=== PATIENT | male | born 1995 | race Caucasian/White ===

== ENCOUNTER 2017-05-03 08:58 | Inpatient (IN) | payer MEDICAID ==
[~2017-05-03] VITALS: Ht 190.5 cm; Wt 98.9 kg
[2017-05-03 09:36] VITALS: BP 123/67
[2017-05-03] MEDS ORDERED: HYDROmorphone 1 MG/ML AMP IM ONE ×2 (09:45→11:05)
--- NOTE | 2017-05-03 09:50 | NUR ---
21 YO MALE C/O RIGHT SHOULDER PAIN 10/10 SINCE LAST NIGHT. PT STATES HE FELT RIGHT SHOULDER POP OUT LAST NIGHT WHILE HE WAS SLEEPING, PT DOES HAVE A HISTORY OF RIGHT SHOULDER DISLOCATION IN THE PAST. A&OX4, VSS, GURNEY TO LOWEST LEVEL BED RAIL UP, RESTING ON GURNEY.
--- NOTE | 2017-05-03 11:40 | NUR ---
DR. OROSCO AT BEDSIDE SPEAKING WITH PT.
[2017-05-03] MEDS ORDERED: ACETAMINOPHEN 325 MG TAB PO PRN (12:20)
[2017-05-03] MEDS ORDERED: ONDANSETRON 4 MG/2 ML VIAL IVP PRN (12:20)
[2017-05-03 13:00] LABS: HEMOGLOBIN 13.8 g/dL (12.0-18.0); MEAN CORPUSCULAR HEMOGLOBIN 28 pg (27-31); MEAN CORPUSCULAR HGB CONC 32 g/dL (33-37); MEAN CORPUSCULAR VOLUME 88 fL (80-94); PLATELET COUNT (AUTO) 200 K/uL (140-450); WHITE BLOOD COUNT (AUTO) 6.2 K/uL (4.8-10.8)
--- NOTE | 2017-05-03 13:10 | NUR ---
VSS, DIE CAST DIE MAKER SHOWING NS @72HR
[2017-05-03 13:17] LABS: ANION GAP 13.5 (8-16); CARBON DIOXIDE 26.8 mmol/L (21-32); CREATININE 0.8 mg/dL (0.7-1.3); POTASSIUM 4.3 mmol/L (3.5-5.1)
[2017-05-03] MEDS ORDERED: ACET-2869 PO (13:19)
--- NOTE | 2017-05-03 13:19 | NUR ---
Patient will be admitted to care of DR. KOEHLER. Admited to TELE. Will go to [id number]. Belongings list completed. Report to JOELLE DAVIS.
[2017-05-03 13:30] LABS: EOSINOPHILS % (MANUAL) 3 % (0-4); LYMPHOCYTES % (MANUAL) 39 % (20-46); MONOCYTES % (MANUAL) 4 % (5-12)
--- NOTE | 2017-05-03 13:30 | NUR ---
RECEIVED REPORT FROM ER NURSE SEBASTIAN, PATIENT AWAKE AND ALERT, NO SIGNS OF ACUTE DISTRESS. BOWEL SOUNDS ACTIVE IN ALL FOUR QUADRANTS, BOWEL AND BLADDER CONTINENCE. SKIN IS INTACT, PT IS AMBULATORY WITH BRP. RIGHT SHOULDER DROOPING LOWER THAN LEFT SHOULDER. PT COMPLAIN OF PAIN 10/10 ON RIGHT SHOULDER. IV IS PATENT AND ASYMPTOMATIC, ORIENTED PT TO HOSPITAL AND UNIT. PT VERBALIZED UNDERSTANDING. VS- BP 122/76, PULSE 77, O2 97, TEMP 98.5, RR 18 BPM. BED IN LOW POSITION, CALL LIGHT WITHIN REACH, BILATERAL HALF SIDE RAILS UP. BED ALARM ON. WILL CONTINUE TO MONITOR.
[2017-05-03 13:41] LABS: CHOL/HDL RATIO 2.3 (1-4.5); FREE T4 (FREE THYROXINE) 1.21 ng/dL (0.76-1.46); MAGNESIUM 1.9 mg/dL (1.8-2.4); PHOSPHORUS 4.7 mg/dL (2.5-4.9); THYROID STIMULATING HORMONE 4.75 uIU/mL (0.34-3.74)
[2017-05-03] MEDS ORDERED: HYDROmorphone 1 MG/ML AMP IVP PRN (14:35)
[2017-05-03] MEDS ORDERED: CYCLOBENZAPRINE 10 MG TAB PO PRN (14:45)
[2017-05-03] MEDS: NACL 0.9% 1,000 ML IV SCH (15:08)
--- NOTE | 2017-05-03 15:35 | NUR ---
ADMINISTER IV ZOFRAN ORDERED D/T ONE EPISODE OF EMESIS. EMESIS APPEARS CLEAR WITH MINIMAL AMOUNT OF BLOOD.
[2017-05-03] MEDS: HYDROmorphone 1 MG/ML AMP IVP PRN ×2 (15:55→21:34)
--- NOTE | 2017-05-03 15:55 | NUR ---
PT COMPLAINING OF PAIN 10/10 IN RIGHT SHOULDER, ADMINISTERED DILAUDID ORDERED. WILL CONTINUE TO MONITOR.
[2017-05-03 16:00] VITALS: BP 122/76
--- NOTE | 2017-05-03 18:00 | NUR ---
PT SLEEPING, NO SIGNS OF ACUTE DISTRESS. BED IN LOW POSITION WITH BILATERAL HALF SIDE RAILS UP, CALL LIGHT WITHIN REACH. WILL CONTINUE TO MONITOR.
--- NOTE | 2017-05-03 19:15 | NUR ---
PATIENT SLEEPING, NO SIGNS OF ACUTE DISTRESS. ENDORSED TO WAREHOUSE OPERATIONS ASSOCIATE NURSE FOR CONTINUITY OF CARE.
--- NOTE | 2017-05-03 19:20 | NUR ---
RECEIVED PT SLEEPING, EASILY AROUSABLE TO TOUCH, VITAL SIGNS STABLE, DENIES ANY PAIN, ABLE TO MOVE ALL EXTREMITIES, PULSE PRESENT AND GOOD CAP REFILL TO RT ARM, SAFETY MEASURES IN PLACE, CALL LIGHT WITHIN REACH.
[2017-05-03 20:00] VITALS: BP 102/57
[2017-05-03] MEDS: DOCUSATE SODIUM 100 MG GELCAP PO SCH ×2 (20:22→21:00)
--- NOTE | 2017-05-03 21:40 | NUR ---
IV LINE INFILTRATED, NEW IV LINE INSERTED TO LEFT HAND WITH GOOD BLOOD RETURN, MEDICATED WITH DILAUDID FOR RT SHOULDER PAIN,PT COMPLAINING WITH ITCHINESS TO BLE, NO RASHES OR REDNESS NOTED, DR CHAMBERS CHECKED THE PT AND ORDERED BENADRYL, BENADRYL PO GIVEN X1 DOSE ORDERED, ALL NEEDS ATTENDED.
[2017-05-04] VITALS (7 sets, daily range): BP systolic 99–126; BP diastolic 52–89
--- NOTE | 2017-05-04 | NUR ---
PT SLEEPING, EASILY AROUSABLE, VITAL SIGNS STABLE, AWARE OF NPO AFTER MIDNIGHT, IVF INFUSING WELL, CONTINUE TO MONITOR CLOSELY.
[2017-05-04] MEDS: NACL 0.9% 1,000 ML IV SCH ×2 (00:46→04:19)
[2017-05-04] MEDS: HYDROmorphone 1 MG/ML AMP IVP PRN ×2 (04:14→20:19)
--- NOTE | 2017-05-04 04:15 | NUR ---
PT AWAKE COMPLAINING OF PAIN, VITAL SIGNS STABLE, MEDICATED PRN FOR DILAUDID IVP, MAINTAIN ON NPO, IVF INFUSING WELL, MONITORED CLOSELY.
[2017-05-04 05:47] LABS: MEAN CORPUSCULAR HEMOGLOBIN 28 pg (27-31); MEAN CORPUSCULAR HGB CONC 32 g/dL (33-37); MEAN CORPUSCULAR VOLUME 89 fL (80-94); PLATELET COUNT (AUTO) 172 K/uL (140-450); RED BLOOD CELL COUNT(AUTO) 4.62 MIL/uL (4.20-6.10); RED CELL DISTRIBUTION WIDTH 12.9 % (11.6-13.7); WHITE BLOOD COUNT (AUTO) 5.5 K/uL (4.8-10.8)
--- NOTE | 2017-05-04 06:00 | NUR ---
PT SLEEPING, NO SIGNS OF DISTRESS, IVF INFUSING WELL, MAINTAINED ON NPO, MONITORED CLOSELY.
[2017-05-04 06:07] LABS: ANION GAP 11.7 (8-16); CARBON DIOXIDE 27.6 mmol/L (21-32); CREATININE 0.9 mg/dL (0.7-1.3); POTASSIUM 4.3 mmol/L (3.5-5.1)
[2017-05-04 06:13] LABS: MAGNESIUM 1.9 mg/dL (1.8-2.4); PHOSPHORUS 5.1 mg/dL (2.5-4.9)
--- NOTE | 2017-05-04 06:44 | NUR ---
DR COLLINS FOR ORTHO CONSULT IS HERE, TALKED TO PT REGARDING PROCEDURE, PLAN TO DO IT SOMETIME IN THE AFTERNOON, PER DR COLLINS TO KEEP PT NPO, INSTRUCTED PT TO MAINTAINED ON NPO, VERBALIZED UNDERSTANDING, CONSENT SIGNED, MONITORED CLOSELY.
--- NOTE | 2017-05-04 07:10 | NUR ---
PT SLEEPING, NO SIGNS OF DISTRESS, REPORT GIVEN TO RYAN HARRY FOR CONTINUITY OF CARE.
--- NOTE | 2017-05-04 07:11 | NUR ---
RECEIVED REPORT FROM PM NURSE. PT IS AWAKE AND ALERT AND ORIENTED X 4. PT SHOWING NO SIGNS OF ACUTE DISTRESS. IV ACCESS IS PATENT, AND ASYMPTOMATIC. BOWEL SOUNDS PRESENT ON ALL FOUR QUADRANTS. AMBULATORY WITH URINAL. SKIN IS INTACT, RIGHT SHOULDER DROOPING LOWER THAN LEFT SHOULDER. PT COMPLAIN OF PAIN 9/10 ON RIGHT SHOULDER, WILL MEDICATE. PLAN OF CARE DISCUSSED, PT VERBALIZED UNDERSTANDING. BED ON LOW POSITION, CALL LIGHT WITHIN REACH. BILATERAL HALF SIDE RAILS UP. WILL CONTINUE TO MONITOR.
[2017-05-04 07:20] LABS: EOSINOPHILS % (MANUAL) 1 % (0-4); LYMPHOCYTES % (MANUAL) 38 % (20-46); MONOCYTES % (MANUAL) 14 % (5-12)
[2017-05-04 08:14] LABS: APPEARANCE,URINE CLEAR (CLEAR); BILIRUBIN,URINE NEGATIVE (NEGATIVE); BLOOD, URINE NEGATIVE (NEGATIVE); COLOR,URINE YELLOW (YELLOW); LEUKOCYTE ESTERASE ,URINE NEGATIVE (NEGATIVE); NITRITE, URINE NEGATIVE (NEGATIVE); UGLUCOSE NEGATIVE (NEGATIVE)
[2017-05-04 08:21] LABS: BARBITURATE, URINE NEG. ng/ml (NEG <=200); BENZODIAZEPINE, URINE NEG. ng/mL (NEG <=200); CANNABINOID, URINE NEG. ng/mL (NEG <=50); COCAINE, URINE NEG. ng/mL (NEG <=300); OPIATE, URINE NEG. ng/mL (NEG <=2000); PHENCYCLIDINE SCREEN,URINE NEG. ng/mL (NEG <=25)
--- NOTE | 2017-05-04 08:30 | NUR ---
PT COMPLAINING OF PAIN 10/10 IN RIGHT SHOULDER. DILAUDID DUE AT 1215, PT REFUSING FLEXERIL. SPOKE WITH DR RIVAS, ZANDER ORDER STANDS. WILL CONTINUE TO MONITOR PATIENT.
[2017-05-04] MEDS ORDERED: HYDROmorphone 1 MG/ML AMP IVP PRN ×2 (08:45→19:20)
[2017-05-04] MEDS: DOCUSATE SODIUM 100 MG GELCAP PO SCH ×2 (09:03→20:19)
--- NOTE | 2017-05-04 10:32 | NUR ---
PT RESTING COMFORTABLY IN BED, NO SIGNS OF ACUTE DISTRESS. BED IN LOW POSITION WITH BILATERAL HALF SIDE RAILS UP, CALL LIGHT WITHIN REACH. WILL CONTINUE TO MONITOR.
--- NOTE | 2017-05-04 11:38 | NUR ---
PATIENT HAS BEEN SCREENED AND CATEGORIZED MODERATE NUTRITION RISK. PATIENT WILL BE SEEN WITHIN 3-5 DAYS OF ADMISSION. 05/06/17-05/08/[address]
--- NOTE | 2017-05-04 11:41 | NUR ---
PER DR ROTH TRANSFER PT TO MED SURG. NOTED WILL CARRY OUT.
--- NOTE | 2017-05-04 11:51 | NUR ---
REMOVED HEART MONITOR DUE TO TRANSFER REQUEST. PT SLEEPING, NO SIGNS OF ACUTE DISTRESS. BED IN LOW POSITION, BILATERAL HALF SIDE RAILS UP, CALL LIGHT WITHIN REACH. WILL CONTINUE TO MONITOR.
--- NOTE | 2017-05-04 12:20 | NUR ---
PT AWAKE AND ALERT NO SIGNS OF ACUTE DISTRESS. TAKEN TO OR, BEDSIDE REPORT GIVEN.
--- NOTE | 2017-05-04 12:28 | NUR ---
CM NOTE INITIAL REVIEW FAXED TO [facility] [place] / FAX# [phone]
[2017-05-04] MEDS ORDERED: SEVOFLURANE 250 ML BTL INH ONE (12:49)
[2017-05-04] MEDS ORDERED: PROPOFOL 200 MG/20 ML VIAL IV ONE (12:49)
[2017-05-04] MEDS: HYDROmorphone PFS 2 MG/ML SYR ONE ×5 (13:50→14:20)
[2017-05-04] MEDS: diphenhydrAMINE 50 MG/ML VIAL ONE ×2 (14:30→14:36)
--- NOTE | 2017-05-04 14:45 | NUR ---
RECEIVED BEDSIDE REPORT FROM TEST ENGINE OPERATOR. PT AWAKE AND ALERT. NO SIGNS OF ACUTE DISTRESS. NO REDNESS OR ITCHING NOTED. VS BP 114/60, PULSE 58, 02 96, T 98.1, R 18, NO PAIN. WILL CONTINUE TO MONITOR
--- NOTE | 2017-05-04 14:50 | NUR ---
PT COMPLAIN OF NOT BEING ABLE TO URINATE AFTER MULTIPLE ATTEMPTS SINCE 0500. INFORMED DR. RIVAS, WILL AWAIT FOR NEW ORDERS.
[2017-05-04] MEDS ORDERED: diphenhydrAMINE 50 MG/ML VIAL IVP SCH (15:02)
--- NOTE | 2017-05-04 15:20 | NUR ---
RECEIVED ORDERS FROM DR RIVAS, FOR BLADDER SCAN. PERFORMED SCAN, SHOWED GREATER THAN 588ML URINE. REPORTED TO DR RIVAS. WILL AWAIT NEW ORDERS.
--- NOTE | 2017-05-04 15:35 | NUR ---
RECEIVED NEW ORDERS FOR FLOMAX AND DC FLUIDS, NOTED, WILL CARRY OUT.
[2017-05-04] MEDS ORDERED: TAMSULOSIN 0.4 MG CAP PO SCH (16:00)
--- NOTE | 2017-05-04 16:00 | NUR ---
PT URINATED IN TOILET, STATED SMALL AMOUNT AND URINATED 200 ML IN URINAL . WILL CONTINUE TO MONITOR.
--- NOTE | 2017-05-04 16:05 | NUR ---
OT COMPLAIN OF 10/10 PAIN ON RIGHT SHOULDER, DILAUDED DUE Q 8 HRS. RECEIVED 2MG DILAUDED IN OR, BACK TO UNIT AT 1445, SPOKE WITH DR. RIVAS PER PT REQUEST ABOUT GETTING MORE PAIN MEDICATION. NO CHANGE IN ORDERS AT THIS TIME PER DR. RIVAS. PT REFUSING PO FLEXERIL AND TYLENOL . PT VERBALIZED UNDERSTANDING. WILL CONTINUE TO MONITOR. Addendum: 05/04/17 at 1707 by Maura Connors RN PT COMPLAIN OF 10/10 PAIN ON RIGHT SHOULDER, DILAUDED DUE Q 8 HRS. RECEIVED 2MG DILAUDED IN OR, BACK TO UNIT AT 1445, SPOKE WITH DR. RIVAS PER PT REQUEST ABOUT GETTING MORE PAIN MEDICATION. NO CHANGE IN ORDERS AT THIS TIME PER DR. RIVAS. PT REFUSING PO FLEXERIL AND TYLENOL . PT VERBALIZED UNDERSTANDING. WILL CONTINUE TO MONITOR.
--- NOTE | 2017-05-04 16:36 | NUR ---
SPOKE WITH DR MARTELL ABOUT ORDER OF BENADRYL IV PUSH SCHEDULED, PER DR MARTELL HOLD BENADRYL WAS SUPPOSED TO BE FOR PACU. NOTED, WILL CARRY OUT.
--- NOTE | 2017-05-04 17:03 | NUR ---
PT HAD URINE OUTPUT OF 500ML. DR RIVAS INFORMED, NO NEW ORDERS AT THIS TIME. WILL CONTINUE TO MONITOR.
--- NOTE | 2017-05-04 18:01 | NUR ---
PT IS SITTING UPRIGHT IN BED, EATING DINNER. NO SIGNS OF ACUTE DISTRESS. BED IN LOW POSITION, BILATERAL HALF SIDE RAILS UP, CALL LIGHT WITHIN REACH. WILL CONTINUE TO MONITOR.
--- NOTE | 2017-05-04 19:08 | NUR ---
PT AWAKE AND ALERT, NO SIGNS OF ACUTE DISTRESS. ENDORSED TO SERVER NURSE FOR CONTINUITY OF CARE. BED IN LOW POSITION WITH BILATERAL HALF SIDE RAILS UP, CALL LIGHT WITHIN REACH.
--- NOTE | 2017-05-04 19:12 | NUR ---
PT VOMITED X1 IN TOILET, EMESIS ORANGE COLOR. NOTIFIED DR WILLIAM, NO CHANGE IN ORDERS AT THIS TIME. NOTIFIED IRIS RN, WELDING MACHINE OPERATOR/TENDER NURSE AND ENDORSED CARE. PT STABLE, NO SIGNS OF ACUTE DISTRESS, RESTING IN BED.
--- NOTE | 2017-05-04 19:20 | NUR ---
RECEIVED PT AWAKE SITTING ON BED, COMPLAINING OF NAUSEA AND PAIN, DR WILLIAM AWARE AND WILL CHECKED THE PT, SLING TO RT ARM IN PLACE, PLAN OF CARE DISCUSS, SAFETY MEASURES IN PLACE, CALL LIGHT WITHIN REACH.
[2017-05-05] VITALS: BP 98/51
--- NOTE | 2017-05-05 | NUR ---
PT SLEEPING, EASILY AROUSABLE, VITAL SIGNS STABLE, DENIES ANY PAIN, NO SOB NOTED, CONTINUE TO MONITOR CLOSELY.
[2017-05-05] MEDS: HYDROmorphone 1 MG/ML AMP IVP PRN (03:04)
--- NOTE | 2017-05-05 03:05 | NUR ---
PT AMBULATED TO BR WITH STEADY GAIT, VOIDED FREELY WITH 600ML YELLOW URINE, BP-111/56, HR-61, MEDICATED PRN FOR PAIN WITH DILAUDID IVP, MONITORED CLOSELY.
[2017-05-05 05:42] LABS: HEMATOCRIT 39.2 % (36-52); HEMOGLOBIN 12.9 g/dL (12.0-18.0); MEAN CORPUSCULAR HEMOGLOBIN 29 pg (27-31); MEAN CORPUSCULAR HGB CONC 33 g/dL (33-37); MEAN CORPUSCULAR VOLUME 89 fL (80-94); PLATELET COUNT (AUTO) 159 K/uL (140-450); RED BLOOD CELL COUNT(AUTO) 4.42 MIL/uL (4.20-6.10); RED CELL DISTRIBUTION WIDTH 12.7 % (11.6-13.7); WHITE BLOOD COUNT (AUTO) 6.2 K/uL (4.8-10.8)
[2017-05-05 06:01] LABS: ANION GAP 10.6 (8-16); CARBON DIOXIDE 29.4 mmol/L (21-32); CREATININE 0.8 mg/dL (0.7-1.3)
--- NOTE | 2017-05-05 06:10 | NUR ---
SEEN PT SLEEPING, NO SIGNS OF DISTRESS, MONITORED CLOSELY.
[2017-05-05 06:18] LABS: MAGNESIUM 1.7 mg/dL (1.8-2.4); PHOSPHORUS 5.1 mg/dL (2.5-4.9)
--- NOTE | 2017-05-05 07:30 | NUR ---
PT AWAKE, NO SIGNS OF DISTRESS, REPORT GIVEN TO RYAN KELLY FOR CONTINUITY OF CARE.
--- NOTE | 2017-05-05 07:35 | NUR ---
RECEIVED REPORT FROM CUSTOM SHOP WORKER NURSE, PT IS RESTING IN BED, A/OX4, AMBULATORY, IV IS ON THE LEFT HAND, PATENT, INTACT, FLUSHING WELL, SKIN IS INTACT, PT HAS RIGHT ARM SLING IN PLACE, NO S/S OF RESPIRATORY DISTRESS OR DISCOMFORT NOTED, DISCUSSED PLAN OF CARE WITH PT, PT VERBALIZED UNDERSTANDING, CALL LIGHT IS WITHIN REACH, WILL CONTINUE TO MONITOR.
[2017-05-05 07:41] LABS: EOSINOPHILS % (MANUAL) 2 % (0-4); LYMPHOCYTES % (MANUAL) 45 % (20-46); MONOCYTES % (MANUAL) 5 % (5-12)
[2017-05-05 08:00] VITALS: BP 116/64
--- NOTE | 2017-05-05 08:30 | NUR ---
PATIENT STATED HE NEEDED SOMETHING FOR PAIN, I LET THE PATIENT KNOW I WAS GOING TO BRING HIM MEDICATION FOR HIS PAIN.
[2017-05-05] MEDS: HYDROcodone/APAP 5/325 MG 1 TAB TAB PO PRN ×2 (08:33→09:52)
[2017-05-05] MEDS: DOCUSATE SODIUM 100 MG GELCAP PO SCH ×2 (08:33→09:00)
--- NOTE | 2017-05-05 08:45 | NUR ---
PATIENT STATED HE WAS IN THE BATHROOM THROWING UP AND THAT HIS SHOULDER HAD JUST SLIPPED OUT AGAIN.
--- NOTE | 2017-05-05 08:55 | NUR ---
DR. ESCOBAR AND DR. MORGAN ARE IN PATIENT'S ROOM SPEAKING WITH PT.
[2017-05-05] MEDS ORDERED: IBUPROFEN 800 MG TAB PO PRN (09:50)
[2017-05-05] MEDS ORDERED: BISACODYL 10 MG SUPP RC PRN (10:05)
--- NOTE | 2017-05-05 10:15 | NUR ---
X-RAY TECH IS AT PATIENT BEDSIDE AT THIS TIME.
--- NOTE | 2017-05-05 12:26 | NUR ---
FAXED CONCURRENT REVIEW TO [facility] [phone] PHONE [phone]
--- NOTE | 2017-05-05 12:30 | NUR ---
PT RESTING IN BED TALKING ON HIS CELL PHONE.
--- NOTE | 2017-05-05 13:43 | NUR ---
CALLED [facility] AND SPOKE WITH ALEXY, . SHE SAID TO FAX REVIEW TO [facility] AT [phone]/ THE CONTINUUM OF CARE MANAGER IS ENRRIQUE [id number]. TRACKING NUMBER IS [id number]. FAXED INITIAL AND CONCURRENT REVIEW.
[2017-05-05] MEDS ORDERED: IBUP-1842 PO (13:52)
--- NOTE | 2017-05-05 14:25 | NUR ---
PT DISCHARGE INSTRUCTIONS GIVEN, ID WRIST BAND REMOVED, IV REMOVED, CATHETER TIP INTACT, PT STABLE UPON DISCHARGE ACCOMPANIED BY TWO OF HIS SISTERS.
== END 2017-05-05 14:25 | disposition home or self-care (01) | DRG 342 ==
LOC: MED 08:58 → MTU 12:21
PROVIDERS: ADMIT Family Medicine; ATTEND Family Medicine
PROC: 0RSJXZZ Reposition Right Shoulder Joint, External Approach (ICD-10-PCS; 2017-05-03)
PROC: 0RSJXZZ Reposition Right Shoulder Joint, External Approach (ICD-10-PCS; principal; 2017-05-04 12:00)
DX: M24.411 Recurrent dislocation, right shoulder (principal); E02 Subclinical iodine-deficiency hypothyroidism; M25.311 Other instability, right shoulder; F17.210 Nicotine dependence, cigarettes, uncomplicated; J45.909 Unspecified asthma, uncomplicated; F19.10 Other psychoactive substance abuse, uncomplicated; Z88.6 Allergy status to analgesic agent; Z88.8 Allergy status to other drugs, medicaments and biological substances; Z91.041 Radiographic dye allergy status
CPT/HCPCS: 23650; 36415; 71010; 73020; 73030; 74000; 80048; 80305; 81003; 82150; 83036; 83690; 83735; 84100; 84439; 84443; 85025; 85610; 85730; 87081; 93005; 96372; 99285; J1170; J1200; J2405; J2704; J7030; Q0092; Q0163